=== PATIENT | female | born 1965 | race Caucasian/White ===

== ENCOUNTER 2021-05-17 06:50 | Emergency (ER) | payer BC ==
[~2021-05-17 06:50] MED LIST: ASPIRIN EC81 MG PO; ATORVASTATIN CA20 MG PO; DYAZIDE 37.5-21 EACH PO; MULTIVITAMINS1 EAC1 PO; NASONEX SPRAY 117 GM; OMEPRAZOLE20 MG PO; POTASSIUM CHLO10 ME1 PO; POTASSIUM CHLO10 MEQ PO; TOPROL XL50 MG PO; XYZAL5 MG PO
[2021-05-17] MEDS ORDERED: PYRIDIUM200 MG PO (08:26)
[2021-05-17] MEDS ORDERED: CEFUROXIME500 MG PO (08:26)
[2021-05-17] MEDS ORDERED: ONDANSETRON ODT4 MG SL (08:26)
== END 2021-05-17 08:35 | disposition home or self-care (01) ==
LOC: ER1 06:50
DX: N30.00 Acute cystitis without hematuria (principal); I10 Essential (primary) hypertension; K21.9 Gastro-esophageal reflux disease without esophagitis; Z90.49 Acquired absence of other specified parts of digestive tract
CPT/HCPCS: 81001; 99283